=== PATIENT | female | born 1935 | race Caucasian/White ===

== ENCOUNTER → 2016-12-18 | Outpatient (CLI) | payer MEDICARE ==
--- NOTE | 2016-12-20 06:29 | RADIOLOGY REPORT PS360 ---
US BREAST-LT COMPLETE W/AXILLA, DIG MAMM-DX DWAIN W/AVWS W/CAD ORDERING PHYSICIAN : Samantha Tejada MD PATIENT AGE: 81 yearsGENDER: Female COMPARISON: November 2016 & January 2015 screening mammogram INDICATION: Further evaluation small nodular density left breast noted on recent mammogram === ... DIAGNOSTIC BILATERAL MAMMOGRAM WITH SPOT VIEWS...... TECHNIQUE: Left breast spot MLO and cc views is well as a full 90 degree. FINDINGS: Minimal fibroglandular elements bilateral LEFT BREAST (A tiny 4.5 mm ovoid density central left breast again identified on mammography. Subsequent Ultrasound shows the vague 4.3 mm hypoechoic area 1-2:00 in zone breast which would seem to match suspect for a small debris filled cyst favored as there is some through transmission versus a early hypoechoic nodule. Follow-up 6 months suggested RIGHT BREAST: Additional MLO and 90 degrees spot views right breast. Areas of linear density compress out at the central breast with no areas of significant concern on right. ==== ...... ULTRASOUND LEFT BREAST BREAST INCLUDING AXILLARY SURVEY Findings. . ultrasound entire breast was performed including axillary survey. It reveals this small hypoechoic focus barely appreciable at 1-2 o'clock position left breast. This measures up to 4.1 mm x 4.3 mm x 3 mm height. This reflects either a debris-filled cyst or could reflect a small developing hypoechoic nodule. Recommend 6 month follow-up to further evaluate. This was s quite small and not seen on the initial ultrasound left breast .But was identified a subsequent, repeat ultrasound left breast ...BH &MW Mild ductal appearing feature at 6:00 Axillary survey with no significant findings.. Benign axillary nodes identified. . IMPRESSION: Summary...... 1. Left breast Mammogram Spot views again demonstrate this Tiny new ovoid nodule at mammogram near 1:00 o'clock position. Measuring up to 4.5 mm size 2. Subsequent Ultrasound reveals small 4.3 mm hypoechoic area at 1-2:00 which most likely correlate.. . This tiny focus warrants 6-8 month follow-up mammogram and ultrasound to further evaluate 3. Right breast: . Additional spot views reveal no areas of concern. Follow-up in one year on right BI-RADS CATEGORY: 3_Probably Benign-Short Term F/U RECOMMENDED FOLLOWUP: ADD ADDITIONAL IMAGING Left breast mammogram and ultrasound 6-8 months (A letter has been sent to the patient regarding results of the study.)
== END ==
LOC: RAD 14:12
DX: R92.8 Other abnormal and inconclusive findings on diagnostic imaging of breast (principal)
CPT/HCPCS: G0204